=== PATIENT | female | born 1945 | race Caucasian/White ===

== ENCOUNTER 2020-09-19 11:04 | Outpatient (CLI) | payer MEDICARE, OTHER ==
--- NOTE | 2020-09-19 11:30 | XRAY Report ---
PROCEDURE: Lumbar Spine Complete INDICATIONS: BACK PAIN LUMBAR TECHNIQUE: 4 views of the lumbar spine were acquired. COMPARISON: None. FINDINGS: Bones: 5 [id number] vertebrae are present. There is mild diffuse rightward curvature of the mi d lumbar spine. Multilevel disc space narrowing and endplate osteophyte formation. Facet hypertrophy throughout the mid and lower lumbar spine. No vertebral body compression fractures. No suspicious priscila ny lesions. Soft tissues: Overlying bowel gas pattern is normal. No suspicious soft tissue calcifications. IMPRESSION: Multilevel degenerative disc and facet disease. No acute fracture. No osseous lesion. If symptoms and/or clinical suspicion for pathology continue, further assessment with repeat plain film s, or advanced imaging (e.g., CT, MRI, or bone scan) is recommended for further assessment. Reviewed by: Rome Miller MD on 09/19/2020 10:28 AM [facility] Approved by: Rome Miller MD on 09/19/2020 10:28 AM [facility] Station ID: [id number]
== END 2020-09-19 23:59 | disposition home or self-care (01) ==
LOC: DI.N 11:04
PROVIDERS: ATTEND Family Medicine
DX: M54.5 Low back pain (principal); M51.36 Other intervertebral disc degeneration, lumbar region

== ENCOUNTER 2021-02-05 09:52 | Outpatient (CLI) | payer MEDICARE, OTHER ==
--- NOTE | 2021-02-05 12:18 | XRAY Report ---
PROCEDURE: Knee 3 View RT INDICATIONS: RIGHT KNEE PAIN TECHNIQUE: 3 views of the right knee(s) were acquired. COMPARISON: None. FINDINGS: Bones: No fractures or dislocations. Mild to moderate tricompartmental osteoarthritis is seen more p rominent in medial femoral tibial compartment. No suspicious bony lesions. Soft tissues: There is small to moderate suprapatellar joint effusion.. No suspicious soft tissue ca lcifications. IMPRESSION: Mild to moderate tricompartmental osteoarthritis more prominent in medial femoral tibial compartment with small to moderate joint effusion. No fracture or dislocation. Reviewed by: Winston Bee MD on 02/05/2021 12:17 PM PST Approved by: Winston Bee MD on 02/05/2021 12:17 PM PST Station ID: [id number]
== END 2021-02-05 09:53 | disposition home or self-care (01) ==
LOC: DI.N 09:52
PROVIDERS: ATTEND Physician Assistant
DX: M25.561 Pain in right knee (principal); M17.11 Unilateral primary osteoarthritis, right knee